=== PATIENT | male | born 1945 | race Caucasian/White ===

== ENCOUNTER 2017-05-27 01:54 | Inpatient (IN) | payer MEDICARE, OTHER ==
[2017-05-27] VITALS (10 sets, daily range): BP systolic 138–181; BP diastolic 78–89; PULSE 63–73; RESP 16–18; TEMP 97.8–98; O2SAT 95–97
[~2017-05-27] VITALS: Ht 182.9 cm; Wt 89.0 kg
[2017-05-27] MEDS ORDERED: OMEP10SU PO (02:21)
[2017-05-27] MEDS ORDERED: ASPI-516 CHEW (02:21)
[2017-05-27] MEDS ORDERED: PRED10 PO (02:21)
[2017-05-27] MEDS ORDERED: ATOR10TA15 PO (02:21)
[2017-05-27 02:32] LABS: AUTOMATED NEUTROPHIL # 5.9 TH/MM3 (1.8-7.7); BASOPHIL % 0.6 % (0.0-2.0); EOSINOPHIL # 0.3 TH/MM3 (0-0.4); EOSINOPHIL % 3.5 % (0.0-4.0); HEMATOCRIT 41.6 % (39.0-51.0); HEMOGLOBIN 14.7 GM/DL (13.0-17.0); LYMPH % 20.2 % (9.0-44.0); LYMPHOCYTE # 1.8 TH/MM3 (1.0-4.8); MEAN CELL VOLUME 95.2 FL (80.0-100.0); MEAN CORPUSCULAR HEMOGLOBIN 33.6 PG (27.0-34.0); MEAN CORPUSCULAR HGB CONC 35.3 % (32.0-36.0); MEAN PLATELET VOLUME 9.3 FL (7.0-11.0); MONO % 7.6 % (0.0-8.0); MONOCYTE # 0.7 TH/MM3 (0-0.9); NEUT % 68.1 % (16.0-70.0); PLATELET COUNT 169 TH/MM3 (150-450); RED BLOOD COUNT 4.37 MIL/MM3 (4.50-5.90); RED CELL DISTRIBUTION WIDTH 13.7 % (11.6-17.2); WHITE BLOOD COUNT 8.7 TH/MM3 (4.0-11.0)
[2017-05-27 02:44] LABS: INTERNATIONAL NORMALIZED RATIO 1.2 RATIO; PROTHROMBIN TIME - PATIENT 11.8 SEC (9.8-11.6)
--- NOTE | 2017-05-27 02:47 | RADRPT ---
EXAM DATE/TIME: 05/27/2017 02:32 [facility] COMPARISON: No previous studies available for comparison. INDICATIONS : Shortness of breath. MEDICAL HISTORY : None. SURGICAL HISTORY : None. ENCOUNTER: Initial ACUITY: 1 day PAIN SCORE: 0/10 LOCATION: Bilateral chest FINDINGS: Shallow lung volumes and cardiomegaly. Patchy alveolar and interstitial infiltrates are suspected at the lung bases. Osseous structures are intact. CONCLUSION: Shallow lung lungs with patchy infiltrates suspected at the bases. Victor Manuel Urbano MD on May 27, 2017 at 2:44 Board Certified Radiologist. This report was verified electronically.
[2017-05-27 03:00] LABS: ALBUMIN 3.7 GM/DL (3.4-5.0); ALT (GPT) 55 U/L (12-78); AST (GOT) 53 U/L (15-37); BICARBONATE 26.3 MEQ/L (21.0-32.0); BLOOD UREA NITROGEN 12 MG/DL (7-18); CALCIUM 8.7 MG/DL (8.5-10.1); CHLORIDE 108 MEQ/L (98-107); CREATININE 1.02 MG/DL (0.60-1.30); GLOMERULAR FILTRATION RATE 72 ML/MIN (>89); GLUCOSE,RANDOM 119 MG/DL (74-106); SODIUM (NA) 141 MEQ/L (136-145)
[2017-05-27] MEDS ORDERED: ASPIRIN 81 MG CHEW TAB CHEW ONE (03:00)
[2017-05-27] MEDS ORDERED: NITROGLYCERIN 2% OINT 1 GM PACKET TOPICAL ONE (03:00)
[2017-05-27 03:02] LABS: ALKALINE PHOSPHATASE 125 U/L (45-117); TOTAL BILIRUBIN ADULT 0.5 MG/DL (0.2-1.0); TOTAL PROTEIN 7.8 GM/DL (6.4-8.2); TROPONIN I LESS THAN 0.02 NG/ML (0.02-0.05)
[2017-05-27] MEDS ORDERED: IOHEXOL 350 MG/ML 10 ML VIAL (for RAD DIAG) IVCONTRAST ONE (03:17)
[2017-05-27 03:21] LABS: BILIRUBIN, URINE NEG (NEG); BLOOD, URINE NEG (NEG); GLUCOSE,URINE NEG (NEG); KETONE, URINE NEG (NEG); MUCUS URINE FEW /lpf (OCC); NITRITE,URINE NEG (NEG); URINE COLOR LIGHT-YELLOW (YELLW/STRAW); URINE LEUKOCYTE ESTERASE NEG (NEG)
--- NOTE | 2017-05-27 03:36 | PD ---
HPI Chief Complaint: Respiratory Distress Time Seen by Provider: 02:05 Travel History International Travel<30 days: No Contact w/Intl Traveler<30days: No Traveled to known affect area: No History of Present Illness HPI The patient is a 71 year old male who presents to the [facility] emergency department with a history of shortness of breath that began earlier this evening when he laid down to go to sleep. The patient reports that he just arrived from [place] by vehicle on Friday. He reports that he noticed that he had some swelling and pain in the left ankle that was causing him to limp on Friday. He reports that he does have a little bit of swelling in the right leg/foot to a lesser extent. He denies having any history of congestive heart failure, UT, DVT, or PE. He does report that he takes a baby aspirin daily. The patient reports that he was recently, approximately 3 months ago diagnosed with interstitial lung disease and has been on a prednisone taper. It started at 20 mg and is now down to 10 mg. He reports that it was decreased down to 10 mg approximately 3 weeks ago. The patient reports that over the last 3 days he has had an increase in his cough. He reports having a chronic cough related to the interstitial lung disease, however it has become more productive of clear sputum. He denies having any fevers, sore throat, rhinorrhea. He denies having any chest pain or chest pressure. On review of systems otherwise he denies having any neck pain,abdominal pain, vomiting, diarrhea, urinary symptoms , or neurologic symptoms. 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 Hx Anticoagulant Therapy: Yes (81MG ASA) Cardiovascular Problems: Yes (HTN) High Cholesterol: Yes GERD: Yes Medical other: Yes (INTERSTITIAL LUNG DISEASE) Past Surgical History Narrative Surgical The patient's past surgical history is significant for right rotator cuff repair Social History Alcohol Use: Yes Tobacco Use: No Substance Use: No Allergies-Medications (Allergen,Severity, Reaction): Coded Allergies: No Known Allergies (Verified Allergy, Unknown, 05/27/17) Reported Meds & Prescriptions Reported Meds & Active Scripts Active Reported Aspirin 81 Mg Chew 81 Mg CHEW DAILY Prilosec (Omeprazole Magnesium) 10 Mg Pow 10 Mg PO DAILY Prednisone 10 Mg Tab 10 Mg PO DAILY Atorvastatin (Atorvastatin Calcium) 10 Mg Tab 10 Mg PO HS Review of Systems Except as stated in HPI: all other systems reviewed are Neg General / Constitutional: No: Fever Eyes: No: Visual changes HENT: No: Headaches, Congestion Cardiovascular: Positive: Dyspnea on exertion, No: Chest Pain or Discomfort Respiratory: Positive: Cough, Shortness of Breath Gastrointestinal: No: Nausea, Vomiting, Abdominal Pain Genitourinary: No: Dysuria Musculoskeletal: No: Pain Skin: No Rash Neurologic: No: Weakness Psychiatric: No: Depression Endocrine: No: Polydipsia Hematologic/Lymphatic: No: Easy Bruising Physical Exam Narrative General: The patient is a well-developed well-nourished male in no acute distress. Head and Neck exam: Head is normocephalic atraumatic. Eyes: EOMI, pupils are equal round and reactive to light. Nose: Midline septum with pink mucous membranes Mouth: Dentition unremarkable. Moist mucus membranes. Posterior oropharynx is not erythematous. No tonsillar hypertrophy. Uvula midline. Airway patent. Neck: No palpable lymphadenopathy. No nuchal rigidity. No thyromegaly. Cardiovascular: Regular rate and rhythm with a 2/6 systolic murmur best audible at the second intercostal space on the right. No pulse deficit to the extremities. Lungs: Decreased breath sounds in bilateral bases. No rhonchi or crackles audible. No accessory muscle use noted. No conversational dyspnea. Abdomen: Soft, without tenderness to palpation in all 4 quadrants of the abdomen. No guarding, rebound, or rigidity. Normal bowel sounds are audible. No tenderness on palpation of McBurney's point. Extremities: No clubbing or cyanosis. The patient has trace to 1+ pitting edema bilateral lower extremities. No calf tenderness on palpation. 2+ pulses in all 4 extremities. Back: No spinous process tenderness to palpation. No costovertebral angle tenderness to palpation. Neurologic Exam: Grossly nonfocal Skin Exam: Intact skin that is warm and dry. Data Data Last Documented VS Vital Signs Date Time Temp Pulse Resp B/P (MAP) Pulse Ox O2 Delivery O2 Flow Rate FiO2 05/27/17 03:07 72 18 146/79 (101) 96 Room Air 05/27/17 01:55 98.0 Orders Orders Electrocardiogram (05/27/17 02:20) Complete Blood Count With Diff (05/27/17 02:20) Comprehensive Metabolic Panel (05/27/17 02:20) Creatine Kinase (Cpk) (05/27/17 02:20) Ckmb (Isoenzyme) Profile (05/27/17 02:20) Troponin I (05/27/17 02:20) B-Type Natriuretic Peptide (05/27/17 02:20) Prothrombin Time / Inr (Pt) (05/27/17 02:20) Act Partial Throm Time (Ptt) (05/27/17 02:20) Urinalysis - C+S If Indicated (05/27/17 02:20) Magnesium (Mg) (05/27/17 02:20) Thyroid Stimulating Hormone (05/27/17 02:20) Chest, Single Ap (05/27/17 02:20) Iv Access Insert/Monitor (05/27/17 02:20) Ecg Monitoring (05/27/17 02:20) Oximetry (05/27/17 02:20) Ct Pulmonary Angiogram (05/27/17 02:57) Aspirin Chew (Aspirin Chew) (05/27/17 03:00) Nitroglycerin 2% Oint (Nitroglycerin 2% (05/27/17 03:00) Us Leg Venous Doppler Bilat (05/27/17 02:58) CKMB (05/27/17 02:27) CKMB% (05/27/17 02:27) Iohexol 350 Inj (Omnipaque 350 Inj) (05/27/17 03:17) Heparin Inj (Heparin Inj) (05/27/17 04:45) Heparin-D5w 25,000 U/250 Ml (Heparin-D5w (05/27/17 04:45) Act Partial Throm Time (Ptt) (05/27/17 04:45) Prothrombin Time / Inr (Pt) (05/27/17 04:45) Cbc No Diff, Includes Plts (05/27/17 04:45) Cbc No Diff, Includes Plts (05/30/17 06:00) Act Partial Throm Time (Ptt) (05/27/17 11:45) Occult Blood (Hemoccult) Stool (05/27/17 04:45) Admit Order (Ed Use Only) (05/27/17 04:56) Labs Laboratory Tests Test 05/27/17 02:15 05/27/17 02:27 Urine Color LIGHT-YELLOW Urine Turbidity CLEAR Urine pH 7.0 Urine Specific [place] 1.008 Urine Protein NEG mg/dL Urine Glucose (UA) NEG mg/dL Urine Ketones NEG mg/dL Urine Occult Blood NEG Urine Nitrite NEG Urine Bilirubin NEG Urine Urobilinogen LESS THAN 2.0 MG/DL Urine Leukocyte Esterase NEG Urine RBC 2 /hpf Urine WBC LESS THAN 1 /hpf Urine Mucus FEW /lpf Microscopic Urinalysis Comment CULT NOT INDICATED White Blood Count 8.7 TH/MM3 Red Blood Count 4.37 MIL/MM3 Hemoglobin 14.7 GM/DL Hematocrit 41.6 % Mean Corpuscular Volume 95.2 FL Mean Corpuscular Hemoglobin 33.6 PG Mean Corpuscular Hemoglobin Concent 35.3 % Red Cell Distribution Width 13.7 % Platelet Count 169 TH/MM3 Mean Platelet Volume 9.3 FL Neutrophils (%) (Auto) 68.1 % Lymphocytes (%) (Auto) 20.2 % Monocytes (%) (Auto) 7.6 % Eosinophils (%) (Auto) 3.5 % Basophils (%) (Auto) 0.6 % Neutrophils # (Auto) 5.9 TH/MM3 Lymphocytes # (Auto) 1.8 TH/MM3 Monocytes # (Auto) 0.7 TH/MM3 Eosinophils # (Auto) 0.3 TH/MM3 Basophils # (Auto) 0.0 TH/MM3 CBC Comment DIFF FINAL Differential Comment Prothrombin Time 11.8 SEC Prothromb Time International Ratio 1.2 RATIO Activated Partial Thromboplast Time 26.8 SEC Blood Urea Nitrogen 12 MG/DL Creatinine 1.02 MG/DL Random Glucose 119 MG/DL Total Protein 7.8 GM/DL Albumin 3.7 GM/DL Calcium Level 8.7 MG/DL Magnesium Level 2.0 MG/DL Alkaline Phosphatase 125 U/L Aspartate Amino Transf (AST/SGOT) 53 U/L Alanine Aminotransferase (ALT/SGPT) 55 U/L Total Bilirubin 0.5 MG/DL Sodium Level 141 MEQ/L Potassium Level 4.3 MEQ/L Chloride Level 108 MEQ/L Carbon Dioxide Level 26.3 MEQ/L Anion Gap 7 MEQ/L Estimat Glomerular Filtration Rate 72 ML/MIN Total Creatine Kinase 129 U/L Creatine Kinase MB 2.1 NG/ML Troponin I LESS THAN 0.02 NG/ML B-Type Natriuretic Peptide 22 PG/ML Thyroid Stimulating Hormone 3rd Gen 2.140 uIU/ML MDM Medical Decision Making Medical Screen Exam Complete: Yes Emergency Medical Condition: Yes Medical Record Reviewed: Yes Interpretation(s) Last Impressions Lower Extremity Ultrasound 05/27/17257 Signed Impressions: Service Date/Time: Saturday, May 27, 2017 03:46 - CONCLUSION: Nonocclusive thrombus in the right mid femoral vein and left proximal femoral vein. Victor Manuel Urbano MD CT Angiography 05/27/17256 Signed Impressions: Service Date/Time: Saturday, May 27, 2017 03:21 - CONCLUSION: Mild diffuse subpleural interstitial lung disease. Atherosclerosis with coronary artery calcification. Cirrhosis and portal hypertension suspected with splenomegaly. Victor Manuel Urbano MD Chest X-Ray 05/27/[id number] Signed Impressions: Service Date/Time: Saturday, May 27, 2017 02:32 - CONCLUSION: Shallow lung lungs with patchy infiltrates suspected at the bases. Victor Manuel Urbano MD Differential Diagnosis Pulmonary embolism, versus exacerbation of his interstitial lung disease, versus pneumonia, versus new onset congestive heart failure, versus acute coronary syndrome. Narrative Course During the course of the patient's emergency department visit, the patient's history, examination, and differential diagnosis were reviewed with the patient. The patient was placed on a quality assurance monitor final with oximetry and frequent blood pressure monitoring. The patient had IV access obtained and blood work sent for analysis. The patient had an EKG done on arrival. The patient's EKG reveals a sinus rhythm heart rate of 72, marked left axis deviation, intraventricular conduction delay with a QRS duration of 146 milliseconds, QTc [address] segment elevation. The patient was initially provided aspirin 324 mg p.o. 1, nitroglycerin 1 inch to the chest wall The patient's laboratory studies were reviewed and remarkable for A white count of 8.7, hemoglobin 14.7, platelets 169 with a normal different, CMP is remarkable for a chloride of 108, glucose 119, AST 53, alk phos 125, cardiac enzymes within normal limits, TSH 2.14, BNP 20, PT 11.8, PTT 26.8 urinalysis is unremarkable. Radiology studies were reviewed and remarkable for A chest x-ray that shows shallow lung volumes with patchy infiltrate suspected at the bases a CTA to rule out PE shows mild diffuse subpleural interstitial lung disease, atherosclerosis with coronary artery calcifications, cirrhosis and portal hypertension suspected with splenomegaly. Ultrasound of bilateral lower extremities reveals nonocclusive thrombus in the right mid femoral vein and left proximal femoral vein. The patient was started on heparin per DVT protocol with a bolus and a drip. The patient's results were discussed with the patient, including the plan of care. I explained that further testing and/ or monitoring is indicated based on the patient's history, examination, and/ or laboratory findings. Therefore, I recommended admission for additional evaluation. The patient expressed understanding and was agreeable with this plan. The patient was admitted to the hospital in stable condition and sent to a bed under the care of the family practice residents. Physician Communication Physician Communication The patient's case including history, pertinent physical examination findings, and laboratory studies were discussed with the family practice residents. It was agreed that the patient would be admitted to the family practice resident's service. Diagnosis Primary Impression: DVT, bilateral lower limbs Qualified Codes: I82.413 - Acute embolism and thrombosis of femoral vein, bilateral Admitting Information Admitting Physician Requests: Admit Afsaneh Jacinto MD May 27, 2017 03:36
--- NOTE | 2017-05-27 03:46 | RADRPT ---
EXAM DATE/TIME: 05/27/2017 03:21 [facility] COMPARISON: CHEST SINGLE AP, May 27, 2017, 2:32. INDICATIONS : Short of breath and leg swelling. IV CONTRAST: 75 cc Omnipaque 350 (iohexol) IV RADIATION DOSE: 10.87 CTDIvol (mGy) MEDICAL HISTORY : Hypertension. Gastroesophageal reflux disease. SURGICAL HISTORY : None. ENCOUNTER: Initial ACUITY: 1 day PAIN SCALE: 4/10 LOCATION: Bilateral chest TECHNIQUE: Volumetric scanning of the chest was performed using a pulmonary embolism protocol MIP images were re constructed. Using automated exposure control and adjustment of the mA and/or kV according to patien t size, radiation dose was kept as low as reasonably achievable to obtain optimal diagnostic quality images. DICOM format image data is available electronically for review and comparison. Follow-up recommendations for detected pulmonary nodules are based at a minimum on nodule size and pa tient risk factors according to Fleischner Society Guidelines. FINDINGS: There is diffuse subpleural interstitial lung disease identified. There is no consolidation. Coronary artery calcification is noted. No pathologically enlarged lymph nodes are identified. There is splen omegaly up to 16 cm in AP dimension, and the liver has a nodular contour with caudate hypertrophy. Th is is characteristic of cirrhosis. There is no evidence for pulmonary embolus. CONCLUSION: Mild diffuse subpleural interstitial lung disease. Atherosclerosis with coronary artery calcification . Cirrhosis and portal hypertension suspected with splenomegaly. Victor Manuel Urbano MD on May 27, 2017 at 3:41 Board Certified Radiologist. This report was verified electronically.
--- NOTE | 2017-05-27 04:22 | RADRPT ---
EXAM DATE/TIME: 05/27/2017 03:46 [facility] COMPARISON: No previous studies available for comparison. INDICATIONS : Bilateral leg swelling. MEDICAL HISTORY : Hypertension. Hypercholesterolemia. Gastroesophageal reflux disease. Interstitial lung disease. Antic oagulant therapy, Aspirin 81mg. SURGICAL HISTORY : Right rotator cuff surgery. ENCOUNTER: Initial ACUITY: 3 days PAIN SCORE: 0/10 LOCATION: Bilateral leg. TECHNIQUE: Venous ultrasound of the left and right leg was performed from the inguinal ligament to the proximal calf. Real-time, color Doppler and spectral tracing, compression and augmentation techniques were us ed. FINDINGS: There is nonocclusive thrombus noted in the right mid femoral vein with incomplete compressibility id entified. The distal and proximal portions of the femoral vein are patent as well as the popliteal, p eroneal and posterior tibial veins. Greater saphenous vein is patent on the right. Right common femor al vein is patent. On the left, the common femoral vein is patent. There is nonocclusive thrombus in the proximal femora l vein, mid and distal portions are patent as well as the popliteal, peroneal, posterior tibial and g reater saphenous veins. CONCLUSION: Nonocclusive thrombus in the right mid femoral vein and left proximal femoral vein. Victor Manuel Urbano MD on May 27, 2017 at 4:17 Board Certified Radiologist. This report was verified electronically.
[2017-05-27] MEDS ORDERED: HEPARIN SODIUM - IV 10,000 UNITS/10 ML VIAL IV ONE (04:45)
[2017-05-27] MEDS ORDERED: HEPARIN-D5W 25,000 U/250 ML 250 ML IV PRN (04:45)
--- NOTE | 2017-05-27 05:27 | HHI.HP ---
[facility] Service Family Medicine Primary Care Physician Non-Staff Admission Diagnosis bilateral dvt Diagnoses: International Travel<30 Days: No Contact w/Intl Traveler<30days: No Known Affected Area: No History of Present Illness Patient is a 71-year-old male past history of interstitial lung disease, hyperlipidemia, presenting today with increased respiratory effort. He states that he had increased respiratory effort earlier, however at this point it is better. Patient states he drove down from [place] 6 days ago, it took all of Friday, , Friday. When he arrived on Friday he knows he is limping, had swelling in his ankles and feet, more on the right than the left. Today he' s had a "General uneasy feeling," with some shortness of breath, trembling. It feels like "when eyes hiking in the [place] He reports he was diagnosed with interstitial lung disease approximately 3 months ago. He had a similar cough that time, was started on prednisone 20 mg daily, recently decreased to 15 mg daily and currently is on 10 mg daily. Denies chest pain, left arm or jaw pain, diaphoresis, nausea, vomiting, fever, chills, abdominal pain, headache, lightheadedness, dizziness, changes in vision, changes in bowel or bladder habits. Reports his last colonoscopy was normal, next colonoscopy June 11. Reports has never been hospitalized for GI bleed. (Sagar Brice MD R1) Review of Systems Constitutional: DENIES: Fever, Chills Endocrine: DENIES: Polydipsia, Polyuria Eyes: DENIES: Blurred vision, Diplopia, Eye inflammation, Eye pain, Vision loss , Photosensitivity, Double Vision Ears, nose, mouth, throat: COMPLAINS OF: Tinnitus, Vertigo, Nasal discharge, DENIES: Hearing loss, Throat pain, Hoarseness, Running Nose, Epistaxis Respiratory: COMPLAINS OF: Cough, Sputum production, Shortness of breath, DENIES: Wheezing, Hemoptysis Cardiovascular: COMPLAINS OF: Palpitations (earlier, bettter now), DENIES: Chest pain, Dyspnea on Exertion Gastrointestinal: DENIES: Abdominal pain, Black stools, Bloody stools, Constipation, Diarrhea, Nausea, Vomiting Genitourinary: DENIES: Urgency, Dysuria Musculoskeletal: DENIES: Joint pain, Muscle aches, Stiffness, Joint Swelling, Back pain, Neck pain Integumentary: DENIES: Abnormal pigmentation, Rash Hematologic/lymphatic: DENIES: Bruising, Lymphadenopathy Immunologic/allergic: DENIES: Eczema, Urticaria Neurologic: DENIES: Abnormal gait, Headache, Localized weakness Psychiatric: DENIES: Anxiety, Suicidal Ideation, Homicidal Ideation (Sagar Brice MD R1) Past Family Social History Past Medical History Interstitial lung disease HLD Past Surgical History Right rotator cuff surgery 2014 (Sagar Brice MD R1) Allergies: Coded Allergies: No Known Allergies (Verified Allergy, Unknown, 05/27/17) Family History Father: at 85 from dementia/Alzheimer, chronic alcohol Mother: at 87 from aneurysm?, had breast CA, chronic alcohol Social History EtOH: very occasional Tobacco: Never Drugs: Never From [place] (Sagar Brice MD R1) Physical Exam Vital Signs Vital Signs Date Time Temp Pulse Resp B/P (MAP) Pulse Ox O2 Delivery O2 Flow Rate FiO2 05/27/17 03:07 72 18 146/79 (101) 96 Room Air 05/27/17 02:16 71 20 96 Room Air 05/27/17 02:12 70 16 96 05/27/17 01:55 98.0 72 16 181/89 (119) 95 Room Air Physical Exam GENERAL: This is a well-nourished, well-developed patient, in no apparent distress. SKIN: Cool and dry. Round, erythematous, blanching, rash on lower legs. ( Reports as recently been diagnosed by chicken tender as a "skin disease kids have ") HEAD: Atraumatic. Normocephalic. No temporal or scalp tenderness. EYES: Pupils equal round and reactive. Extraocular motions intact. No scleral icterus. No injection or drainage. ENT: Nose without bleeding, purulent drainage or septal hematoma. Throat without erythema, tonsillar hypertrophy or exudate. Uvula midline. Airway patent. NECK: Trachea midline. No JVD or lymphadenopathy. Supple, nontender, no meningeal signs. CARDIOVASCULAR: Regular rate and rhythm without gallops, or rubs. 2/6 systolic murmur heard best at right sternal border, radiating to carotids. (reports having had an echo in March which his doctor stated showed aortic stenosis and they could just monitor) RESPIRATORY: Breath sounds equal bilaterally. No wheezes, or rhonchi. Crackles in b/l bases. GASTROINTESTINAL: Abdomen soft, non-tender, nondistended. No hepato-splenomegaly , or palpable masses. No guarding. MUSCULOSKELETAL: Extremities without clubbing, cyanosis, or edema. No joint tenderness, effusion, or edema noted. No calf tenderness. Negative Homans sign bilaterally. NEUROLOGICAL: Awake and alert. Motor and sensory grossly within normal limits. Five out of 5 muscle strength in all muscle groups. Normal speech. Laboratory Laboratory Tests Test 05/27/17 02:15 05/27/17 02:27 Urine Color LIGHT-YELLOW Urine Turbidity CLEAR Urine pH 7.0 Urine Specific [place] 1.008 Urine Protein NEG Urine Glucose (UA) NEG Urine Ketones NEG Urine Occult Blood NEG Urine Nitrite NEG Urine Bilirubin NEG Urine Urobilinogen LESS THAN 2.0 Urine Leukocyte Esterase NEG Urine RBC 2 Urine WBC LESS THAN 1 Urine Mucus FEW Microscopic Urinalysis Comment CULT NOT INDICATED White Blood Count 8.7 Red Blood Count 4.37 Hemoglobin 14.7 Hematocrit 41.6 Mean Corpuscular Volume 95.2 Mean Corpuscular Hemoglobin 33.6 Mean Corpuscular Hemoglobin Concent 35.3 Red Cell Distribution Width 13.7 Platelet Count 169 Mean Platelet Volume 9.3 Neutrophils (%) (Auto) 68.1 Lymphocytes (%) (Auto) 20.2 Monocytes (%) (Auto) 7.6 Eosinophils (%) (Auto) 3.5 Basophils (%) (Auto) 0.6 Neutrophils # (Auto) 5.9 Lymphocytes # (Auto) 1.8 Monocytes # (Auto) 0.7 Eosinophils # (Auto) 0.3 Basophils # (Auto) 0.0 CBC Comment DIFF FINAL Differential Comment Prothrombin Time 11.8 Prothromb Time International Ratio 1.2 Activated Partial Thromboplast Time 26.8 Blood Urea Nitrogen 12 Creatinine 1.02 Random Glucose 119 Total Protein 7.8 Albumin 3.7 Calcium Level 8.7 Magnesium Level 2.0 Alkaline Phosphatase 125 Aspartate Amino Transf (AST/SGOT) 53 Alanine Aminotransferase (ALT/SGPT) 55 Total Bilirubin 0.5 Sodium Level 141 Potassium Level 4.3 Chloride Level 108 Carbon Dioxide Level 26.3 Anion Gap 7 Estimat Glomerular Filtration Rate 72 Total Creatine Kinase 129 Creatine Kinase MB 2.1 Troponin I LESS THAN 0.02 B-Type Natriuretic Peptide 22 Thyroid Stimulating Hormone 3rd Gen 2.140 (Sagar Brice MD R1) Result Diagram: 05/27/1722605/27/17226 Imaging Last 24 hours Impressions Lower Extremity Ultrasound 05/27/17257 Signed Impressions: Service Date/Time: Saturday, May 27, 2017 03:46 - CONCLUSION: Nonocclusive thrombus in the right mid femoral vein and left proximal femoral vein. Victor Manuel Urbano MD CT Angiography 05/27/17256 Signed Impressions: Service Date/Time: Saturday, May 27, 2017 03:21 - CONCLUSION: Mild diffuse subpleural interstitial lung disease. Atherosclerosis with coronary artery calcification. Cirrhosis and portal hypertension suspected with splenomegaly. Victor Manuel Urbano MD Chest X-Ray 05/27/17219 Signed Impressions: Service Date/Time: Saturday, May 27, 2017 02:32 - CONCLUSION: Shallow lung lungs with patchy infiltrates suspected at the bases. Victor Manuel Urbano MD (Sagar Brice MD R1) Caprini VTE Risk Assessment Caprinwaldo VTE Risk Assessment: Mod/High Risk (score >= 2) (Sagar Brice MD R1) Assessment and Plan Assessment and Plan 71-year-old male with past history of interstitial lung disease who presents today with bilateral lower extremity DVT and increased respiratory effort. Respiratory effort is better at this time. No PE seen on CTA. Prednisone for interstitial lung disease recently decreased. (Sagar Brice MD R1) Attending Attestation Patient seen, examined, and discussed with resident team around 08:30. I agree with assessment and management as documented and discussed with me. The patient has been seen and examined. The chart and all resident notes have been reviewed. I agree that inpatient care is appropriate and that a two midnight stay was expected for the reasons documented in the resident history and physical. I have discussed this with the resident and certify the resident s order for inpatient admission. This morning, pt reports feeling stable; he reports SOB has improved. He feels ready to go home. He feels lower extremity edema is the same. + crackles at bases on exam, consistent with known lung disease. Bilateral lower extremity edema. Pt is clinically stable. Will stop heparin drip and transition to oral xarelto. Discussed risks, benefits , side effects, and alternatives of this medication. Anticipate discharge today. (Ashley Quarles MD) Problem List: (1) DVT, bilateral lower limbs ICD Codes: I82.403 - Acute embolism and thrombosis of unspecified deep veins of lower extremity, bilateral Status: Acute Plan: Bilateral lower extremity DVT following long car ride, diagnosed via Doppler ultrasound. Was placed on heparin drip in ED. Warfarin and novel agents were discussed with patient. -Anticoagulation was discussed, patient expressed understanding and agreed to start novel agent -To start Xarelto today, stop heparin drip -Monitor for signs and symptoms of PE (2) Interstitial lung disease ICD Codes: J84.9 - Interstitial pulmonary disease, unspecified Plan: Reports he was diagnosed with an interstitial lung disease approximately 3 months ago. Was started on 20 mg of prednisone, gradually decreased to 10 mg daily. No PE seen on CTA, not tachycardiac. -Continue prednisone 10 mg daily -Monitor for signs of respiratory status change (3) HLD (hyperlipidemia) ICD Codes: E78.5 - Hyperlipidemia, unspecified Plan: History of hyperlipidemia -Continue home medication, atorvastatin 10 mg by mouth at bedtime (4) FEN Plan: Fluids: -Tolerating fluids by mouth Electrolytes: -Monitor and replete as needed Nutrition: Heart healthy diet (Sagar Brice MD R1) Physician Certification 2 Midnight Certification Type: Admission for Inpatient Services Order for Inpatient Services The services are ordered in accordance with Medicare regulations or non- Medicare payer requirements, as applicable. In the case of services not specified as inpatient-only, they are appropriately provided as inpatient services in accordance with the 2-midnight benchmark. Estimated LOS (days): 2 2 days is the estimated time the patient will need to remain in the hospital, assuming treatment plan goals are met and no additional complications. Post-Hospital Plan: Home (Sagar Brice MD R1) Problem Qualifiers (1) DVT, bilateral lower limbs: Qualified Codes: I82.413 - Acute embolism and thrombosis of femoral vein, bilateral Sagar Brice MD R1 May 27, 2017 05:27 Ashley Quarles MD May 27, 2017 16:02
[2017-05-27] MEDS ORDERED: SODIUM CHLORIDE 0.9% FLUSH 10 ML FLUSH IV FLUSH PRN (05:30)
[2017-05-27] MEDS ORDERED: RIVAROXABAN 15 MG TAB PO SCH ×2 (06:00→06:30)
[2017-05-27] MEDS ORDERED: predniSONE 10 MG TAB PO SCH (09:00)
[2017-05-27] MEDS ORDERED: OMEPRAZOLE MAGNESIUM 10 MG PO SCH (09:00)
[2017-05-27] MEDS ORDERED: ASPIRIN 81 MG CHEW TAB CHEW SCH (09:00)
[2017-05-27] MEDS ORDERED: SODIUM CHLORIDE 0.9% FLUSH 10 ML FLUSH IV FLUSH SCH (09:00)
[2017-05-27] MEDS ORDERED: XARE15TA PO (13:14)
[2017-05-27] MEDS ORDERED: XARE20TA PO (13:14)
--- NOTE | 2017-05-27 13:15 | HHI.DS ---
Discharge Summary Admission Date May 27, 2017 at 05:47 Discharge Date: May 27, 2017 Admitting Diagnosis bilateral dvt (1) DVT, bilateral lower limbs Diagnosis: Principal Plan: Bilateral lower extremity DVT following long car ride, diagnosed via Doppler ultrasound. Was placed on heparin drip in ED. Warfarin and novel agents were discussed with patient. -Anticoagulation was discussed, patient expressed understanding and agreed to start novel agent -To start Xarelto today, stop heparin drip -Monitor for signs and symptoms of PE ICD Codes: I82.403 - Acute embolism and thrombosis of unspecified deep veins of lower extremity, bilateral Status: Acute (2) Interstitial lung disease Diagnosis: Secondary Plan: Reports he was diagnosed with an interstitial lung disease approximately 3 months ago. Was started on 20 mg of prednisone, gradually decreased to 10 mg daily. No PE seen on CTA, not tachycardiac. -Continue prednisone 10 mg daily -Monitor for signs of respiratory status change ICD Codes: J84.9 - Interstitial pulmonary disease, unspecified (3) HLD (hyperlipidemia) Plan: History of hyperlipidemia -Continue home medication, atorvastatin 10 mg by mouth at bedtime ICD Codes: E78.5 - Hyperlipidemia, unspecified (4) FEN Plan: Fluids: -Tolerating fluids by mouth Electrolytes: -Monitor and replete as needed Nutrition: Heart healthy diet Brief History Patient is a 71-year-old male past history of interstitial lung disease, hyperlipidemia, presenting today with increased respiratory effort. He states that he had increased respiratory effort earlier, however at this point it is better. Patient states he drove down from [place] 6 days ago, it took all of Friday, , Friday. When he arrived on Friday he knows he is limping, had swelling in his ankles and feet, more on the right than the left. Today he' s had a "General uneasy feeling," with some shortness of breath, trembling. It feels like "when eyes hiking in the [place]." He reports he was diagnosed with interstitial lung disease approximately 3 months ago. He had a similar cough that time, was started on prednisone 20 mg daily, recently decreased to 15 mg daily and currently is on 10 mg daily. Denies chest pain, left arm or jaw pain, diaphoresis, nausea, vomiting, fever, chills, abdominal pain, headache, lightheadedness, dizziness, changes in vision, changes in bowel or bladder habits. Reports his last colonoscopy was normal, next colonoscopy June 11. Reports has never been hospitalized for GI bleed. CBC/BMP: 05/27/1722605/27/17226 Significant Findings Laboratory Tests Test 05/27/17 02:15 05/27/17 02:27 05/27/17 09:00 Urine Mucus FEW /lpf (OCC) Red Blood Count 4.37 MIL/MM3 (4.50-5.90) Prothrombin Time 11.8 SEC (9.8-11.6) Random Glucose 119 MG/DL (74-106) Alkaline Phosphatase 125 U/L (45-117) Aspartate Amino Transf (AST/SGOT) 53 U/L (15-37) Chloride Level 108 MEQ/L (98-107) Estimat Glomerular Filtration Rate 72 ML/MIN (>89) Troponin I LESS THAN 0.02 NG/ML LESS THAN 0.02 NG/ML Светлана Dhillon MD R2 May 27, 2017 13:15
--- NOTE | 2017-05-27 13:16 | HHI.DCPOC ---
Discharge Care Plan Diagnosis: (1) DVT, bilateral lower limbs (2) Interstitial lung disease (3) HLD (hyperlipidemia) Goals to Promote Your Health * To prevent worsening of your condition and complications * To maintain your health at the optimal level Directions to Meet Your Goals Take your medications as prescribed Follow your dietary instruction Follow activity as directed Keep your appointments as scheduled Take your immunizations and boosters as scheduled If your symptoms worsen call your PCP, if no PCP go to Urgent Care Center or Emergency Room Smoking is Dangerous to Your Health. Avoid second hand smoke Call the 24-hour hour crisis hotline for domestic abuse at Светлана Dhillon MD R2 May 27, 2017 13:16
--- NOTE | 2017-05-27 18:29 | EKG ---
Date Performed: 05/27/2017 Time Performed: 08:58:05 PTAGE: 71 years EKG: Sinus rhythm WITH FIRST DEGREE AV BLOCK MARKED LEFT AXIS DEVIATION MODERATE INTRAVENTRICULAR CONDUCTION DELAY ABN ORMAL ECG Since the prior tracing, there has been no significant change PREVIOUS TRACING : 05/27/2017 02.09 DOCTOR: Sebastien Mann Interpretating Date/Time 05/27/2017 18:27:34
--- NOTE | 2017-05-27 18:29 | EKG ---
Date Performed: 05/27/2017 Time Performed: 02:09:47 PTAGE: 71 years EKG: Sinus rhythm MARKED LEFT AXIS DEVIATION INTRAVENTRICULAR CONDUCTION DELAY ABNORMAL ECG NO PREVIOUS TRACING DOCTOR: Sebastien Mann Interpretating Date/Time 05/27/2017 18:27:19
[2017-05-27] MEDS ORDERED: ATORVASTATIN 10 MG TAB PO SCH (21:00)
[2017-05-28] VITALS: O2SAT 97
== END 2017-05-27 14:30 | disposition home or self-care (01) | DRG 300 ==
LOC: NEPC 01:54 → NEDA 04:59 → INTOOBSV 04:59 → OBSVTOIN 05:47 → NEDH 10:31
PROVIDERS: ADMIT Family Medicine; ATTEND Family Medicine
DX: I82.413 Acute embolism and thrombosis of femoral vein, bilateral (principal); J84.9 Interstitial pulmonary disease, unspecified; Z79.52 Long term (current) use of systemic steroids; E78.5 Hyperlipidemia, unspecified
CPT/HCPCS: 71045; 71275; 80053; 81001; 82550; 82552; 83735; 83880; 84443; 84484; 85025; 85610; 85730; 93005; 93970; 99285; J1644; J7512; Q9967